=== PATIENT | male | born 1960 | race Caucasian/White ===

== ENCOUNTER 2023-05-13 07:33 | Day surgery (SDC) | payer BC ==
[2023-05-13] MEDS ORDERED: Propofol 200 MG/20 ML SDV IV ONE (07:34)
[2023-05-13] MEDS ORDERED: Lidocaine 2% 5 ML SDV IV ONE (07:34)
[2023-05-13] MEDS ORDERED: Lactated Ringers 1,000 ML IV SCH (07:45)
[2023-05-13] MEDS ORDERED: Sodium Chloride 0.9% 10 ML Syringe FLUSH PRN (07:45)
[2023-05-13] MEDS ORDERED: Simethicone Drops 40 MG/0.6 ML 30 ML Bottle PO ONE (10:05)
== END 2023-05-13 11:16 | disposition home or self-care (01) ==
LOC: FB.SDS 07:33
PROVIDERS: ATTEND Surgery
DX: K63.5 Polyp of colon (principal); K40.90 Unilateral inguinal hernia, without obstruction or gangrene, not specified as recurrent; K21.9 Gastro-esophageal reflux disease without esophagitis; M10.9 Gout, unspecified; I10 Essential (primary) hypertension; Z79.899 Other long term (current) drug therapy
CPT/HCPCS: 00811; 88305; A9270-GY; J2704; J7120

== ENCOUNTER 2025-06-06 06:47 | Emergency (ER) | payer BC ==
[2025-06-06 07:17] LABS: GLUCOSE,URINE NORMAL (NORMAL); OCCULT BLOOD,URINE LARGE (NEGATIVE)
[2025-06-06 07:18] LABS: APPEARANCE,URINE SLIGHTLY CLOUDY (CLEAR)
[2025-06-06 07:28] LABS: SQUAMOUS EPITHELIAL CELLS,UR RARE (NS,R,O)
== END 2025-06-06 07:53 | disposition home or self-care (01) ==
LOC: FB.ED 06:47
DX: N13.9 Obstructive and reflux uropathy, unspecified (principal); Z79.899 Other long term (current) drug therapy
CPT/HCPCS: 81001; 99283